=== PATIENT | female | born 1955 | race Hispanic/Latino ===

== ENCOUNTER 2022-08-09 13:00 | Emergency (ER) | payer OTHER ==
[~2022-08-09] VITALS: Ht 162.6 cm; Wt 74.8 kg
[2022-08-09 13:07] VITALS: BP 163/72
[2022-08-09] MEDS ORDERED: NEOMY SULF/BACITRA/POLYMYXIN B 1 EACH PACKET TP ONE (14:30)
[2022-08-09] MEDS ORDERED: DIPH,PERTUSS(ACELL),TET VAC/PF 0.5 ML VIAL IM ONE (14:30)
[2022-08-09] MEDS ORDERED: BACITRACIN 1 EACH PACKET TP ONE (14:52)
[2022-08-09] MEDS ORDERED: TETANUS/DIPHTHERIA TOXOID [ADULT] 0.5 ML VIAL IM ONE (14:53)
[2022-08-09] MEDS ORDERED: TRAM50TA4 PO (16:35)
[2022-08-09] MEDS ORDERED: NEOM30OI18 TP (16:35)
== END 2022-08-09 16:58 | disposition home or self-care (01) ==
LOC: EDH 13:00
DX: S00.31XA Abrasion of nose, initial encounter (principal); S00.81XA Abrasion of other part of head, initial encounter; S93.492A Sprain of other ligament of left ankle, initial encounter; I10 Essential (primary) hypertension; W01.0XXA Fall on same level from slipping, tripping and stumbling without subsequent striking against object, initial encounter; Y93.89 Activity, other specified; Y92.89 Other specified places as the place of occurrence of the external cause; Y99.8 Other external cause status
CPT/HCPCS: 70150; 70450; 70486; 72125; 73600; 90471; 90714; 90715